=== PATIENT | male | born 1985 | race African-American/Black ===

== ENCOUNTER 2021-06-16 04:16 | Emergency (ER) | payer MEDICAID, OTHER ==
[~2021-06-16] VITALS: Ht 167.6 cm; Wt 78.1 kg
[2021-06-16] MEDS ORDERED: HYDROCODONE/ACETAMINOPHEN 5/325MG TABLET PO ONE (05:15)
[2021-06-16] MEDS ORDERED: BACITRACIN ZINC OINT UDPKT TOP ONE (05:15)
[2021-06-16] MEDS ORDERED: LIDOCAINE HCL/EPINEPHRINE 1%-EPI 1:100,000 20 ML VIAL INFIL ONE (05:15)
[2021-06-16] MEDS ORDERED: TETANUS, DIPHTHERIA, PERTUSSIS VAC/PF 0.5ML (>10YR OLD) IM ONE (05:15)
[2021-06-16] MEDS ORDERED: LIDOCAINE HCL/PF 1% 10 MG/ML 5ML VIAL INFIL ONE (06:45)
[2021-06-16 08:07] VITALS: BP 154/76
== END 2021-06-16 08:10 | disposition home or self-care (01) ==
LOC: ER 04:16
DX: S61.411A Laceration without foreign body of right hand, initial encounter (principal); I10 Essential (primary) hypertension; W17.89XA Other fall from one level to another, initial encounter; Y93.89 Activity, other specified; Y92.89 Other specified places as the place of occurrence of the external cause; Y99.8 Other external cause status
CPT/HCPCS: 12002; 73130; 90471; 90715; 99283; J3490

== ENCOUNTER 2021-12-09 07:28 | Emergency (ER) | payer OTHER ==
[~2021-12-09] VITALS: Ht 172.7 cm; Wt 77.0 kg
[2021-12-09 07:58] VITALS: BP 153/90
[2021-12-09] MEDS ORDERED: CIPR-264 MT (08:19)
== END 2021-12-09 08:32 | disposition home or self-care (01) ==
LOC: ER 07:28
DX: A05.9 Bacterial foodborne intoxication, unspecified (principal); I10 Essential (primary) hypertension
CPT/HCPCS: 99283

== ENCOUNTER 2022-12-08 01:51 | Emergency (ER) | payer OTHER ==
[~2022-12-08] VITALS: Ht 170.2 cm; Wt 84.0 kg
[~2022-12-08 01:51] MED LIST: CIPR-264 MT
[2022-12-08 01:56] VITALS: O2SAT 99
[2022-12-08] MEDS ORDERED: LIDOCAINE HCL/PF 1% 10 MG/ML 5ML VIAL INFIL ONE (02:00)
[2022-12-08] MEDS ORDERED: TETANUS, DIPHTHERIA, PERTUSSIS VAC/PF 0.5ML (>10YR OLD) IM ONE (02:00)
[2022-12-08] MEDS ORDERED: BACITRACIN ZINC OINT UDPKT TOP ONE (02:00)
[2022-12-08 02:06] VITALS: BP 150/95; PULSE 111; RESP 18; TEMP 98.7
[2022-12-08] MEDS ORDERED: BO1 TP (02:38)
== END 2022-12-08 03:24 | disposition left against medical advice (07) ==
LOC: ER 01:51
DX: S41.111A Laceration without foreign body of right upper arm, initial encounter (principal); I10 Essential (primary) hypertension; W26.0XXA Contact with knife, initial encounter; Y93.89 Activity, other specified; Y92.89 Other specified places as the place of occurrence of the external cause; Y99.8 Other external cause status
CPT/HCPCS: 99282; 12002; J3490